=== PATIENT | female | born 1985 | race Caucasian/White ===

== ENCOUNTER 2019-09-14 14:31 | Day surgery (SDC) | payer MEDICAID ==
[~2019-09-14 14:31] MED LIST: Dexamethasone 20 MG/5 ML VIAL ONE; Lidocaine 1% PF 5 ML VIAL ONE; Ondansetron PF 4 MG/2 ML Vial ONE; PROPOFOL 200 MG/20 ML VIAL ONE
[2019-09-14 15:19] LABS: #Basophils 0.1 thou/uL (0.0-0.2); #Eosinphils 0.4 thou/uL (0.0-0.7); #Lymphocytes 2.2 thou/uL (1.20-3.40); #Monocytes 0.8 thou/uL (0.11-0.59); #Neutrophils 5.8 thou/uL (1.40-6.50); %Basophils 0.6 % (0.0-1.0); %Eosinophils 4.1 % (0.0-10.0); %Lymphocytes 23.5 % (21.0-51.0); %Monocytes 8.2 % (0.0-10.0); %Neutrophils 63.6 % (42.0-75.0); Hemoglobin 13.4 g/dL (12.0-16.0); Mean Corpuscular Hemoglobin 32.9 pg (27.0-31.0); Platelet Count 247 thou/uL (130-400); RBC Distribution Width 11.7 % (11.5-14.5); Red Blood Cell (RBC) Count 4.07 mill/uL (4.20-5.40); White Blood Cell (WBC) Count 9.2 thou/uL (4.8-10.8)
--- NOTE | 2019-09-14 16:13 | ULT ---
PELVIC ULTRASOUND: HISTORY: Vaginal bleeding. TECHNIQUE: Real-time imaging of the pelvis was obtained both transabdominally as well as with an endovaginal pro be. FINDINGS: This shows the uterus measuring approximately 7.9 cm in length. The endometrium is thickened at appro ximately 1 cm. No intrauterine gestational sac is identified. The right ovary is somewhat difficult to visualize on the endovaginal imaging but appears normal on t ransabdominal exam. The left adnexa is normal. No free fluid. On Doppler evaluation with spectral analysis, normal flow is shown to the adnexa. IMPRESSION: No signs of an intrauterine or ectopic . No free fluid demonstrated. This does not exclude t he possibility of an early ectopic. The endometrium is mildly thickened. POS: [facility]
[2019-09-14] MEDS ORDERED: Morphine 4 MG/ML VIAL ONE (16:42)
[2019-09-14] MEDS ORDERED: Doxycycline 100 MG CAP PO SCH (18:30)
[2019-09-14] MEDS ORDERED: Fentanyl 100 MCG/2 ML VIAL ONE ×4 (19:15→21:44)
[2019-09-14] MEDS ORDERED: Midazolam HCl 2 mg/2 ml Vial ONE (19:43)
[2019-09-14] MEDS ORDERED: HYDROcodone/Acetaminophen 5/325 mg Tablet ONE (21:57)
--- NOTE | 2019-09-15 02:19 | OP ---
DATE OF PROCEDURE: 09/14/2019 PRIMARY OB: None. PREOPERATIVE DIAGNOSES: 1. Suspected incomplete . 2. Intrauterine approximately 6 weeks by dates. 3. Vaginal bleeding. POSTOPERATIVE DIAGNOSES: 1. Suspected incomplete . 2. Intrauterine approximately 6 weeks by dates. 3. Vaginal bleeding. PROCEDURE: Suction D and C. ANESTHESIA: General. COMPLICATIONS: None. COUNTS: Correct. CONDITION: Stable to recovery room. FINDINGS: Uterus sound at 7.5 cm anteverted with scant contents. DESCRIPTION OF PROCEDURE: Ms. Rubio is a 34-year-old female with a reported positive test and LMP of couple of months ago, who presented to the emergency room with heavy vaginal bleeding that began about 6 o'clock this morning. She reports that she passed a lot of tissue into the toilet and continued to have a lot of bleeding and cramping and came to the emergency room. At the time of her presentation, the ER provider reported to me that the patient was bleeding more than a pad an hour and had 2 point drop in hemoglobin over a 2-hour period. At the time of my evaluation, patient continued to report heavy cramping and bleeding. She confirmed a positive test at a center and subsequent Medicaid approval. She was counseled to the options for her including the option of medical management versus surgical management for a suspected incomplete AV . We discussed the risks and benefits of both options. Patient desired to proceed with D and C. She was subsequently taken to the operating room, where she was placed under general anesthesia and placed in candy-cane stirrups in lithotomy position. She was prepared and draped in a normal sterile fashion. Attention was placed vaginally, where with the aid of an operative speculum, the cervix was identified and grasped with a single-tooth tenaculum on the anterior lip and the cervix was then dilated to accommodate a 7-[place] curved curette. Suction was tested to be about 35 cm of water and was passed three times into the uterine cavity with very scant return. A serrated sharp curette was then used and had good uterine cry in all 4 quadrants. The curette was removed and the suction curette was passed one more time and the tenaculum was then removed from the anterior lip of the cervix. Patient was noted to have good hemostasis and the procedure was completed. She was taken out of lithotomy position and sent to recovery room in stable condition. Job ID: [id number]
== END 2019-09-14 22:41 | disposition home or self-care (01) ==
LOC: ERS 14:31 → SDC/OP 19:47
PROVIDERS: ATTEND Obstetrics & Gynecology
PROC: 0UDB7ZZ Extraction of Endometrium, Via Natural or Artificial Opening (ICD-10-PCS; principal; 2019-09-14)
DX: N93.9 Abnormal uterine and vaginal bleeding, unspecified (principal); F41.9 Anxiety disorder, unspecified; F32.9 Major depressive disorder, single episode, unspecified; F17.210 Nicotine dependence, cigarettes, uncomplicated; E66.9 Obesity, unspecified; Z68.28 Body mass index [BMI] 28.0-28.9, adult
CPT/HCPCS: 36415; 76856; 86850; 86900; 86901; 88305; J0131; J1100; J2001; J2250; J2270; J2405; J2704; J3010